=== PATIENT | female | born 1955 | race Caucasian/White ===

== ENCOUNTER 2016-06-19 18:11 | Emergency (ER) | payer MEDICAID ==
[2016-06-19 18:21] VITALS: TEMP 97.7
--- NOTE | 2016-06-19 19:19 | DX ---
Right Foot, 3 Views Clinical Indications: First metatarsal-phalangeal joint pain and swelling, no history of trauma Findings: There is erosive change on either side of the lateral aspect of the mildly narrowed, first metatarsal-phalangeal joint. This erosive change is not obviously acute on the metatarsals side, but has irregular margins on the proximal phalanx side. There is no demineralization adjacent to the ero sive change. There is no soft tissue calcification or ossification. There is hypertrophic change natalie g the medial aspect of the first metatarsal-phalangeal joint. The remainder the foot is unremarkable. No fracture or is identified. No radiopaque foreign body or periosteal reaction. Other joint spac es have normal thickness. 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
--- NOTE | 2016-06-19 20:29 | EDPHY ---
H & P Past Medical/Surgical History: Chief complaint: Right great toe pain History of present illness: This is a 60-year-old female who presents to the emergency department for right great toe pain. Patient reports the onset of pain over the last 2-3 days. She has had associated redness and swelling. She denies precipitating factors. She denies alleviating factors. It is worse with movement. She denies other associated signs or symptoms including no history of trauma, no paresthesias or abnormal coolness, no red streaking up the foot, no fevers. Smoking Status: Never smoked Physical Exam: General: Alert, nontoxic Skin: Erythema around the 1st MTP joint of the right foot, no induration or fluctuance on palpation. No red streaking. Musculoskeletal: Mild tenderness to the right 1st MTP joint. There does not appear to be significant discomfort with passive range of motion. The rest the foot is nontender. Vascular: Capillary refill brisk in the right great toe. DP and PT pulses 2+. Neurologic: Sensation intact in the right great toe as well as the rest the foot. Constitutional: Initial Vital Signs Temperature (C) 36.5 C 06/19/16 18:16 Heart Rate 100 06/19/16 18:16 Respiratory Rate 18 06/19/16 18:16 Blood Pressure 141/107 H 06/19/16 18:16 O2 Sat (%) 97 06/19/16 18:16 O2 Delivery Mode Room Air Allergies/Adverse Reactions: lisinopril Allergy (Severe, Verified 06/09/16 11:03) Rash Sulfa (Sulfonamide Antibiotics) Allergy (Severe, Verified 06/09/16 11:03) Anaphylaxis Home Medications: Medication Instructions Recorded Omeprazole [Prilosec] 40 mg PO DAILY 03/01/15 Fluoxetine HCl [Prozac 40 mg] 40 mg PO DAILY 02/25/16 Metoprolol Tartrate [Lopressor 25 25 mg PO BID 02/25/16 mg (*)] Cyclobenzaprine [Flexeril 10 MG 5 - 10 mg PO TID PRN #30 tab 02/26/16 (*)] Lidocaine 5% [Lidoderm 5% Patch 2 ea TD DAILY #30 patch 02/26/16 (*)] Hydrocodone/APAP 5/325 [[place] 1 tab PO Q4 #12 tab 06/19/16 5/325 (*)] oxyCODONE IR [Oxycodone Ir (*)] 5 mg PO Q4 #10 tab 06/19/16 MDM/Departure - MDM Diagnostics: X-ray series of the right foot shows chronic and likely acute erosive process of the 1st MTP joint Medications Given: Discontinued Medications Acetaminophen/Hydrocodone Bitart ([place] 5/325mg Prepack#6) 1 btl TAKEHOME EDNOW ONE Stop: 06/19/16 21:10 Last Admin: 06/19/16 21:14 Dose: 1 btl ED Course/Re-evaluation: Patient seen under the supervision of my secondary supervising physician Dr. Ravi Bob. Patient presents to the emergency department for right great toe pain and swelling. I believe history, physical exam and imaging studies are most likely consistent with an acute gout attack. She cannot take NSAIDs. She will be prescribed narcotic pain medication. She would like to avoid Tylenol given a history of hepatitis. She is given a prescription for Oxycodone IR, the [place] prescription is not given. She is asked to follow up with her primary care doctor for recheck. Strict return precautions are given. Patient voiced understanding and agreement with plan. - Depart Disposition: Home, Routine, Self-Care Clinical Impression: Gout Qualifiers: Gout site: foot Gout etiology: unspecified cause Laterality: right Chronicity: acute Qualifier Code: (M10.9) Gout, unspecified Condition: Good Instructions: Gout (ED) Additional Instructions: Follow-up with her primary care doctor in the next 2-3 days for recheck You have been prescribed [place] for pain. [place] contains Tylenol, do not take extra Tylenol/acetaminophen/Apap with it. It is sedating. If symptoms worsen or new symptoms develop return to the emergency department for recheck Prescriptions: Hydrocodone/APAP 5/325 [[place] 5/325 (*)] 1 tab PO Q4 #12 tab oxyCODONE IR [Oxycodone Ir (*)] 5 mg PO Q4 #10 tab Referrals: Anusha Garcia MD [Primary Care Provider] - As per Instructions
[2016-06-19] MEDS ORDERED: HYDROCOD/APAP 5/325 PREPACK#6 BTL TAKEHOME ONE (21:09)
[2016-06-19 21:17] VITALS: BP 164/100; PULSE 87; RESP 16; O2SAT 95
== END 2016-06-19 21:17 | disposition home or self-care (01) ==
DX: M10.9 Gout, unspecified (principal)

== ENCOUNTER → 2016-06-21 | Outpatient (CLI) | payer MEDICAID ==
[~2016-06-21] MED LIST: GADOBUTROL 10 ML VIAL IVP ONE
--- NOTE | 2016-06-21 19:23 | MR ---
MRI orbits and face Without and With Contrast 1538 hours History: Mass left inferior orbit. (H 05.89). Technique: T1 axial and coronal along with second echo T2 FSE with fat saturation imaging in all 3 pl anes was obtained through the face orbits. High resolution T1 axial pre- and postcontrast with fat sa turation imaging was obtained through the face and orbits as well as T1 coronal and sagittal post con trast imaging with fat saturation. 5.5 mL of Gadavist IV contrast were injected for post contrast juan ges. Findings: High resolution imaging through the orbits demonstrates normal enhancement and appearance o f the extraocular muscles. The optic nerve is normal in appearance without mass or abnormal enhanceme nt. The orbital globes are normal in appearance as well. No mass is seen associated with the orbits. No intra or extraconal masses seen. The optic chiasm is normal in appearance as well. Imaging through the neck demonstrates no evidence of mass lymphadenopathy. Bone marrow signal is norm al. No enhancing mass is seen. Normal appearing lymph nodes are present in the soft tissues. Focal CS F signal is seen associated with the left posterior superior cerebellar cortex as well as right poste rior inferior cerebellar cortex. The paranasal sinuses and mastoid air cells are clear. The parasella r structures, IAC's, brainstem, and vascular structures of the base of the brain appear to be normal. Impression: 1. No evidence of mass associated with the orbits as detailed above. Clinical correlation and followu p suggested. 2. Normal signal associated with the face. 3. Focal CSF signal along the cortex left posterior superior cerebellum and right posterior inferior cerebellum. This could be related to prior remote infarct or possibly from trauma. This pattern was a lso present on prior CT study from March 07, 2015.
== END ==
LOC: FIMAGING 15:04
PROVIDERS: ATTEND Ophthalmology
DX: H05.89 Other disorders of orbit (principal)
CPT/HCPCS: A9585

== ENCOUNTER 2016-07-31 16:53 | Emergency (ER) | payer MEDICAID ==
[2016-07-31 17:31] VITALS: RESP 16
--- NOTE | 2016-07-31 18:07 | EDPHY ---
H & P Time Seen by Provider: 07/31/16 18:03 HPI/ROS: HPI: 60-year-old female presents to emergency department with chief concern 10 chronic bilateral low back pain radiating into her right posterior leg. No recent trauma or change in her pain. Has had this pain for years. Sees a chronic pain specialist who has started her on gabapentin but chooses not to use narcotic medication. Primary care providers Dr. Anusha Garcia. Patient denies recent fevers, chills, myalgias, URI symptoms, shortness of breath, chest pain, abdominal pain, nausea, vomiting, urinary symptoms, flank pain. No incontinence of bowel or bladder, no saddle anesthesia. Symptoms have not worsened in the recent past. Has also been evaluated by a neurosurgeon. ROS:10 point review of systems is negative other than as stated in HPI Social History: Retired dentist Smoking Status: Never smoked Physical Exam: Vital signs stable, reviewed by me Constitutional: Alert, calm, cooperative. No acute distress. HEENT: Head normocephalic. PERRLA, EOMI. No pallor or injection. TMs pearly- batres without bulging or retraction. Nasal mucosa pink and moist. Pharynx without redness or evidence of tonsillar exudates. Neck: Supple, nontender. No midline tenderness Respiratory: Breathing unlabored. Lungs clear to auscultation bilaterally. Cardiovascular: Heart rate regular. S1-S2. No murmur, rub, or gallop. No evidence of JVD or edema. No carotid bruit. DP/PT pulses 2+ bilaterally. Gastrointestinal: Abdomen soft, nontender. Bowel sounds normoactive x4 quadrants. Neuro: Patellar and Achilles DTRs 2+ bilaterally. Strength 5+ in all extremities. No point tenderness to palpation of thoracic or lumbar spine. Left and right paraspinous muscles without tenderness to palpation. No evidence of radiculopathy on straight leg raise bilaterally. Sensation intact to soft and pinprick in all regions of both legs and feet bilaterally. Bilaterally, strength is 5+ to resistance of dorsiflexion and plantar flexion of the great toes. Musculoskeletal: Range of motion inhibited. Constitutional: Initial Vital Signs Temperature (C) 36.7 C 07/31/16 17:29 Heart Rate 79 07/31/16 17:29 Respiratory Rate 16 02/16/17 17:29 Blood Pressure 132/86 H 07/31/16 17:29 O2 Sat (%) 96 07/31/16 17:29 O2 Delivery Mode Room Air Allergies/Adverse Reactions: lisinopril Allergy (Severe, Verified 06/09/16 11:03) Rash Sulfa (Sulfonamide Antibiotics) Allergy (Severe, Verified 06/09/16 11:03) Anaphylaxis Home Medications: Medication Instructions Recorded Omeprazole [Prilosec] 40 mg PO DAILY 03/01/15 Fluoxetine HCl [Prozac 40 mg] 40 mg PO DAILY 02/25/16 Metoprolol Tartrate [Lopressor 25 25 mg PO BID 02/25/16 mg (*)] Cyclobenzaprine [Flexeril 10 MG 5 - 10 mg PO TID PRN #30 tab 02/26/16 (*)] Lidocaine 5% [Lidoderm 5% Patch 2 ea TD DAILY #30 patch 02/26/16 (*)] Hydrocodone/APAP 5/325 [[place] 1 tab PO Q4 #12 tab 06/19/16 5/325 (*)] oxyCODONE IR [Oxycodone Ir (*)] 5 mg PO Q4 #10 tab 06/19/16 Hydrocodone/APAP 5/325 [[place] 1 - 2 tab PO Q6H PRN #10 tab 07/31/16 5/325 (*)] Medical Decision Making ED Course/Re-evaluation: Nontoxic afebrile 60-year-old presents to ED with chronic back pain. She was at her chronic pain specialists office today and was started on gabapentin. She is also patient Dr. Anusha Garcia. She has Lidoderm patches that she occasionally uses at home. States her pain is not well controlled. She has been counseled regarding narcotic seeking at the ED and case management consult has been requested for this patient. Differential Diagnosis: Differential diagnosis includes but is not limited to chronic back pain, diskitis, UTI, cauda equina Departure - Departure Disposition: Home, Routine, Self-Care Clinical Impression: Chronic back pain Qualifiers: Back pain location: low back pain Back pain laterality: bilateral Sciatica presence: with sciatica Sciatica laterality: sciatica of right side Qualified Code(s): M54.41 - Lumbago with sciatica, right side Condition: Good Instructions: Chronic Back Pain (ED) Additional Instructions: Plan: Follow up with her primary care provider Anusha Garcia at [facility] tomorrow for recheck without fail--When you call to schedule appointment, please let the office know you are an "ER follow up" appointment" Use Lidoderm patches at home Taking gabapentin as prescribed by your chronic pain physician 1-2 [place] every 6 hours for severe pain--Never drink or drive while taking this medication. This medication impairs decision making capacity so do not work or sign important documents while taking. This medication its constipating so drink plenty of fluids and consider an [id number] stool softener such as docusate sodium (Colace) while taking this medication. This medication has addictive properties. You should use the least amount for the shortest amount of time. [facility] do not refill narcotic pain medication prescriptions. This is a hospital policy. You will need to follow up as indicated for recheck for further narcotic refills. For further narcotic medications you will need to be evaluated by your primary care provider or your chronic pain specialist. The emergency department does not refill narcotic medication and is not the appropriate place to seek narcotic medications for your chronic pain. Referrals: Anusha Garcia MD [Primary Care Provider] - As per Instructions Stand Alone Forms: Narcotic Guidelines Prescriptions: Hydrocodone/APAP 5/325 [[place] 5/325 (*)] 1 - 2 tab PO Q6H PRN #10 tab PRN Reason: severe pain
[2016-07-31 18:45] VITALS: BP 136/88; PULSE 85; TEMP 98.4; O2SAT 99
== END 2016-07-31 18:45 | disposition home or self-care (01) ==
DX: M54.41 Lumbago with sciatica, right side (principal); G89.29 Other chronic pain

== ENCOUNTER → 2016-08-05 | Outpatient (CLI) | payer MEDICAID | LOC: FIMAGING 12:53 | PROVIDERS: ATTEND Neurological Surgery | DX: M41.86 Other forms of scoliosis, lumbar region (principal); M51.36 Other intervertebral disc degeneration, lumbar region; M50.31 Other cervical disc degeneration, high cervical region; M50.320 Other cervical disc degeneration, mid-cervical region, unspecified level; M43.16 Spondylolisthesis, lumbar region ==

== ENCOUNTER → 2016-09-19 | Outpatient (CLI) | payer MEDICAID | LOC: BRMIMAGING 13:40 | PROVIDERS: ATTEND Neurological Surgery | DX: M81.0 Age-related osteoporosis without current pathological fracture (principal) ==